=== PATIENT | female | born 1980 | race Caucasian/White ===

== ENCOUNTER 2017-05-28 08:42 | Emergency (ER) | payer OTHER ==
[~2017-05-28] VITALS: Ht 170.2 cm; Wt 109.0 kg
[~2017-05-28 08:42] MED LIST: Colace PO; Ferrous Gluconate PO
[2017-05-28 09:17] LABS: HEMATOCRIT 42.9 % (36.0-46.0); MCH 30.6 PG (29.0-34.0); MCHC 34.3 G/DL (30.0-36.0); MCV 89.4 FL (83-99); MEAN PLAT.VOLUME 9.6 uM^3 (9.5-12.4); PLATELET COUNT 280 K/uL (156-360); RBC DIS.WIDTH-CV 13.5 % (11.8-14.6); RBC DIS.WIDTH-SD 44.3 % (39-53); WHITE BLOOD COUNT 13.5 K/uL (4.1-10.2)
[2017-05-28 09:26] LABS: ADD MIUA? YES; BILIRUBIN NEGATIVE; BLOOD SMALL; COLOR YELLOW ((YELLOW)); GLUCOSE (STRIP) NEGATIVE; KETONES NEGATIVE; LEUKOCYTES NEGATIVE; NITRITE NEGATIVE; PROTEIN (STRIP) 30; SPECIFIC GRAVITY 1.016 (1.000-1.030); UROBILINOGEN 0.2 MG/DL (0.2-1.0)
[2017-05-28 09:27] LABS: CHLORIDE 109 mEq/L (99-109); POTASSIUM 3.9 mEq/L (3.7-5.4); SODIUM 142 mEq/L (136-147)
[2017-05-28 09:29] LABS: GLUCOSE 122 mg/dL (70-99)
[2017-05-28 09:30] LABS: ANION GAP 10 MEQ/L (2-14)
[2017-05-28 09:31] LABS: TOTAL BILIRUBIN 0.3 mg/dL (0.0-1.0)
[2017-05-28 09:32] LABS: ALKALINE PHOSPHATASE 94 IU/L (3-129)
[2017-05-28 09:33] LABS: GFR ESTIMATE (CALCULATED) > 59 mL/min/
[2017-05-28 09:34] LABS: UREA NITROGEN (BUN) 15 mg/dL (9-23)
[2017-05-28 09:36] LABS: LIPASE 14 U/L (1.0-51.0)
[2017-05-28 09:41] LABS: BACTERIA RARE /HPF; EPITHELIAL CELLS 1+ /HPF; MUCUS TRACE /LPF; WHITE BLOOD CELLS 0-5 /HPF (0-5)
[2017-05-28 09:42] LABS: QUANTITATIVE HCG < 4.0 MIU/ML
[2017-05-28] MEDS ORDERED: FLOMAX0.4 MG PO (11:18)
[2017-05-28] MEDS ORDERED: MOTRIN800 MG PO (11:18)
[2017-05-28] MEDS ORDERED: NORCO 5/3251 TABLET PO (11:18)
[2017-05-28] MEDS ORDERED: ZOFRAN ODT4 MG PO (11:18)
[2017-05-28 12:11] VITALS: BP 147/66
== END 2017-05-28 12:19 | disposition home or self-care (01) ==
LOC: EME 08:42
PROVIDERS: Nurse Practitioner Family
DX: N20.1 Calculus of ureter (principal); R31.9 Hematuria, unspecified; D72.829 Elevated white blood cell count, unspecified; N13.2 Hydronephrosis with renal and ureteral calculous obstruction; Z87.891 Personal history of nicotine dependence
CPT/HCPCS: 74176; 80053; 81003; 83690; 84702; 85027; 99281; 99285; J1885; J2270; J2405; J7030